=== PATIENT | female | born 1965 | race Native Hawaiian/Other Pacific Islander ===

== ENCOUNTER 2021-07-12 13:00 | Outpatient (CLI) | payer BC | END 2021-07-12 20:08 | disposition home or self-care (01) | LOC: CT 13:00 | PROVIDERS: ATTEND Family Medicine | DX: J31.0 Chronic rhinitis (principal); R51.9 Headache, unspecified; R42 Dizziness and giddiness; R05.9 Cough, unspecified; J02.9 Acute pharyngitis, unspecified ==